=== PATIENT | female | born 1935 | race Caucasian/White ===

== ENCOUNTER 2017-10-12 16:51 | Inpatient (IN) | payer OTHER ==
[2017-10-12] MEDS: ONDANSETRON 4 MG INJ IV (18:29)
[2017-10-12] MEDS: morphine 4 MG/ML VIAL IV ×2 (18:29→22:12)
[2017-10-12] MEDS: SOD CHLORIDE 0.9% 1,000 ML IV ×3 (18:30→23:59)
[2017-10-12] MEDS: FAMOTIDINE 20 MG TAB PO (18:30)
[2017-10-12 18:44] LABS: ADD MAN DIFF? NO
[2017-10-12 18:47] LABS: WHITE BLOOD COUNT 22.1 10^3/ul (4.8-10.8)
[2017-10-12 18:47] LABS: BASOPHIL # 0.1 10^3/ul (0.0-0.1); BASOPHILS % 0.2 % (0.0-2.0); HEMATOCRIT 44.2 % (37.0-47.0); HEMOGLOBIN 15.5 g/dl (12.0-16.0); LYMPHOCYTES # 1.3 10^3/ul (0.8-2.9); MEAN CORPUSCULAR HEMOGLOBIN 30.8 pg (29.0-33.0); MEAN CORPUSCULAR HGB CONC 35.1 g/dl (32.0-37.0); MEAN CORPUSCULAR VOLUME 87.7 fl (82.0-101.0); MEAN PLATELET VOLUME 11.2 fl (7.4-10.4); MONOCYTE # 1.2 10^3/ul (0.3-0.9); MONOCYTES % 5.6 % (0.0-11.0); NEUTROPHIL # 19.4 10^3/ul (1.6-7.5); NEUTROPHILS % 87.7 % (39.0-77.0); PLATELET COUNT 202 10^3/UL (140-415); RED BLOOD COUNT 5.04 10^6/ul (4.20-5.40); RED CELL DISTRIBUTION WIDTH 12.8 % (11.5-14.5)
[2017-10-12] MEDS: FENTAnyl 50 MCG/ML VIAL IV (18:51)
[2017-10-12 19:05] LABS: ALANINE AMINOTRANSFERASE 385 IU/L (13-69); ALBUMIN 4.6 g/dl (3.3-4.9); ALBUMIN/GLOBULIN RATIO 1.12; ALKALINE PHOSPHATASE 358 IU/L (42-121); ANION GAP 20 (8-16); ASPARTATE AMINO TRANSFERASE 278 IU/L (15-46); BILIRUBIN,INDIRECT 1.3 mg/dl (0-1.1); BILIRUBIN,TOTAL 5.8 mg/dl (0.2-1.3); BLOOD UREA NITROGEN 13 mg/dl (7-20); CALCIUM 9.4 mg/dl (8.4-10.2); CARBON DIOXIDE 30 mmol/L (21-31); CHLORIDE 94 mmol/L (97-110); CREATININE 0.72 mg/dl (0.44-1.00); GLUCOSE 184 mg/dl (70-220); LIPASE 666 U/L (23-300); SODIUM 141 mmol/L (135-144); TOTAL PROTEIN 8.7 g/dl (6.1-8.1)
[2017-10-12 19:11] LABS: LACTIC ACID 2.6 mmol/L (0.5-2.0)
[2017-10-12 19:11] LABS: POTASSIUM 2.8 mmol/L (3.5-5.1)
[2017-10-12 19:16] LABS: TROPONIN-I < 0.012 ng/ml (0.00-0.12)
[2017-10-12] MEDS: LABETALOL HCL 20MG INJ IV (20:24)
[2017-10-12] MEDS ORDERED: HYDROCODONE/APAP (5/325) TAB PO (22:00)
[2017-10-12] MEDS: hydrALAzine 20 MG INJ IV ×2 (22:00→22:10)
[2017-10-12] MEDS ORDERED: ZOLPIDEM 5 MG TAB PO (22:00)
[2017-10-12] MEDS ORDERED: ACETAMINOPHEN 325 MG TAB PO (22:00)
[2017-10-12] MEDS ORDERED: MAGNESIUM HYDROXIDE 30ML CUP PO (22:00)
[2017-10-12] MEDS ORDERED: DOCUSATE SODIUM 100 MG CAP PO (22:00)
[2017-10-12] MEDS: CEFTRIAXONE 1 GM/50 ML (PMX) 50 ML IVPB (22:12)
[2017-10-12] MEDS ORDERED: METOCLOPRAMIDE 10 MG INJ IV (22:30)
[2017-10-12] MEDS ORDERED: LORAZEPAM 2 MG INJ IV (22:30)
[2017-10-12 22:43] LABS: MAGNESIUM 1.9 mg/dl (1.7-2.5)
[2017-10-12 23:35] LABS: LACTIC ACID 1.6 mmol/L (0.5-2.0)
[2017-10-12] MEDS: HYDROmorphONE 0.5 MG/0.5 ML SYG IV (23:53)
[2017-10-12] MEDS: metroNIDAZOLE 500 MG/NS (PMX) 100 ML IVPB (23:59)
[2017-10-13] MEDS: CLONIDINE 0.3 MG/24 HR PATCH TRANSDERM (01:15)
[2017-10-13] MEDS: hydrALAzine 20 MG INJ IV ×4 (01:31→14:00)
[2017-10-13] MEDS: POTASSIUM CHLORIDE 50 ML IVPB (03:43)
[2017-10-13] MEDS: HYDROmorphONE 0.5 MG/0.5 ML SYG IV (03:43)
[2017-10-13] MEDS: POTASSIUM CHLORIDE 30 MEQ in SOD CHLORIDE 0.9% 250 ML IV (03:46)
[2017-10-13] MEDS: PANTOPRAZOLE 40 MG INJ IV (07:02)
[2017-10-13] MEDS: SOD CHLORIDE 0.9% 1,000 ML IV ×2 (07:53→22:00)
[2017-10-13 08:03] LABS: ADD MAN DIFF? NO
[2017-10-13 08:08] LABS: ABNORMAL IP MESSAGE 1; BASOPHILS % 0.2 % (0.0-2.0); HEMATOCRIT 39.8 % (37.0-47.0); HEMOGLOBIN 13.6 g/dl (12.0-16.0); LYMPHOCYTES # 1.7 10^3/ul (0.8-2.9); LYMPHOCYTES % 6.7 % (15.0-51.0); MEAN CORPUSCULAR HEMOGLOBIN 30.4 pg (29.0-33.0); MEAN CORPUSCULAR HGB CONC 34.2 g/dl (32.0-37.0); MEAN CORPUSCULAR VOLUME 88.8 fl (82.0-101.0); MONOCYTE # 1.2 10^3/ul (0.3-0.9); NEUTROPHIL # 21.7 10^3/ul (1.6-7.5); NEUTROPHILS % 87.2 % (39.0-77.0); PLATELET COUNT 214 10^3/UL (140-415); RED BLOOD COUNT 4.48 10^6/ul (4.20-5.40); RED CELL DISTRIBUTION WIDTH 12.9 % (11.5-14.5)
[2017-10-13 08:08] LABS: WHITE BLOOD COUNT 24.9 10^3/ul (4.8-10.8)
[2017-10-13 08:14] LABS: LACTIC ACID 1.6 mmol/L (0.5-2.0)
[2017-10-13 08:16] LABS: POSITIVE DIFF @See below
[2017-10-13 08:24] LABS: CHOL/HDL RATIO 2.8 RATIO; HDL CHOLESTEROL 48 mg/dl (33-92); LDL CHOLESTEROL,CALCULATED 79 mg/dl; TRIGLYCERIDES 62 mg/dl (0-149)
[2017-10-13 08:24] LABS: CHOLESTEROL 139 mg/dl (100-200)
[2017-10-13 08:35] LABS: ALANINE AMINOTRANSFERASE 288 IU/L (13-69); ALBUMIN 3.9 g/dl (3.3-4.9); ALBUMIN/GLOBULIN RATIO 1.39; ALKALINE PHOSPHATASE 265 IU/L (42-121); ANION GAP 20 (8-16); ASPARTATE AMINO TRANSFERASE 144 IU/L (15-46); BILIRUBIN,TOTAL 6.4 mg/dl (0.2-1.3); BLOOD UREA NITROGEN 17 mg/dl (7-20); CALCIUM 8.4 mg/dl (8.4-10.2); CARBON DIOXIDE 27 mmol/L (21-31); CHLORIDE 99 mmol/L (97-110); CREATININE 1.23 mg/dl (0.44-1.00); GLUCOSE 117 mg/dl (70-220); MAGNESIUM 1.9 mg/dl (1.7-2.5); POTASSIUM 3.2 mmol/L (3.5-5.1); SODIUM 143 mmol/L (135-144); TOTAL PROTEIN 6.7 g/dl (6.1-8.1)
[2017-10-13 08:43] LABS: FREE THYROXINE INDEX (Calc) 3.69 ug/ml (0.65-3.89); T3 UPTAKE 40.5 % (23.5-40.5); T4 (THYROXINE) 9.1 ug/dl (5.5-11.0)
[2017-10-13 08:45] LABS: INR 1.05; PROTIME 13.8 Sec (11.9-14.9); PT RATIO 1.1
[2017-10-13 08:46] LABS: PARTIAL THROMBOPLASTIN TIME 31.7 Sec (25.0-35.0)
[2017-10-13] MEDS: ISOSORBIDE MONONITRATE(SR)60 MG TAB PO (09:00)
[2017-10-13] MEDS: LOSARTAN 50 MG TAB PO (09:17)
[2017-10-13] MEDS: PIPER-TAZO 3.375 GM IV (PMX) 100 ML IVPB ×3 (09:18→21:58)
[2017-10-13 09:24] LABS: HEMOGLOBIN A1C 5.3 % (0-5.9)
[2017-10-13] MEDS: ONDANSETRON 4 MG INJ IV (10:05)
[2017-10-13] MEDS ORDERED: POTASSIUM CHLORIDE 50 ML IVPB (11:00)
[2017-10-13] MEDS ORDERED: VITAMIN A & D 5 GM OINT PACKET TOP (13:27)
[2017-10-13 14:20] LABS: LACTIC ACID 2.3 mmol/L (0.5-2.0)
[2017-10-13] MEDS: KCL 30 MEQ in NS 250 ML IVPB X1 IVPB (14:24)
[2017-10-13] MEDS: SOD CHLORIDE 0.9% 500 ML IV (14:39)
[2017-10-13] MEDS ORDERED: ROCURONIUM 50 MG INJ ×2 (18:22→19:23)
[2017-10-13] MEDS ORDERED: LIDOCAINE 2% (SDV) 5 ML INJ (18:22)
[2017-10-13] MEDS ORDERED: SUCCINYLCHOLINE CHLORIDE 100 MG/5 ML SYG IV (18:22)
[2017-10-13] MEDS ORDERED: PROPOFOL 20 ML (18:22)
[2017-10-13] MEDS ORDERED: NEOSTIGMINE 3 MG/3 ML SYRINGE ×3 (18:22→19:40)
[2017-10-13] MEDS ORDERED: GLYCOPYRROLATE 0.4 MG INJ ×3 (18:22→19:40)
[2017-10-13] MEDS ORDERED: IOHEXOL 300MG/ML 30 ML BTL (18:27)
[2017-10-13] MEDS ORDERED: METOCLOPRAMIDE 10 MG INJ IV (18:30)
[2017-10-13] MEDS ORDERED: DIPHENHYDRAMINE 50 MG INJ IV (18:30)
[2017-10-13] MEDS ORDERED: MIDAZOLAM 1 MG/ML 2 ML INJ IV (18:30)
[2017-10-13] MEDS ORDERED: FENTAnyl 50 MCG/ML VIAL IV ×2 (18:30)
[2017-10-13] MEDS ORDERED: hydrALAzine 20 MG INJ IV (18:30)
[2017-10-13] MEDS ORDERED: LABETALOL HCL 20MG INJ IV (18:30)
[2017-10-13] MEDS ORDERED: OXYCODONE/ACETAMINOPHEN (5/325) TAB PO ×2 (18:30)
[2017-10-13] MEDS ORDERED: ONDANSETRON 4 MG INJ IV (18:30)
[2017-10-13] MEDS: INDOMETHACIN 50 MG SUPP PR (18:30)
[2017-10-13] MEDS ORDERED: EPHEDrine SULFATE 50 MG/5 ML SYG IV (18:30)
[2017-10-13] MEDS ORDERED: MEPERIDINE 25 MG INJ IV (18:30)
[2017-10-13] MEDS ORDERED: ONDANSETRON 4 MG INJ (19:10)
[2017-10-13] MEDS ORDERED: METOCLOPRAMIDE 10 MG INJ (19:10)
[2017-10-13] MEDS: FENTAnyl 50 MCG/ML VIAL IV (20:18)
[2017-10-13 21:49] LABS: LACTIC ACID 1.6 mmol/L (0.5-2.0)
[2017-10-13] MEDS: LACTATED RINGER'S 1,000 ML IV (21:57)
[2017-10-14] MEDS: LACTATED RINGER'S 1,000 ML IV ×2 (04:00→09:56)
[2017-10-14] MEDS: SOD CHLORIDE 0.9% 1,000 ML IV ×3 (04:09→23:53)
[2017-10-14] MEDS: PANTOPRAZOLE 40 MG INJ IV (05:30)
[2017-10-14] MEDS: PIPER-TAZO 3.375 GM IV (PMX) 100 ML IVPB ×3 (05:31→21:21)
[2017-10-14 07:21] LABS: ADD MAN DIFF? NO
[2017-10-14 07:23] LABS: WHITE BLOOD COUNT 13.8 10^3/ul (4.8-10.8)
[2017-10-14 07:23] LABS: BASOPHILS % 0.1 % (0.0-2.0); EOSINOPHILS % 0.1 % (0.0-7.0); HEMOGLOBIN 11.4 g/dl (12.0-16.0); LYMPHOCYTES # 1.5 10^3/ul (0.8-2.9); LYMPHOCYTES % 10.9 % (15.0-51.0); MEAN CORPUSCULAR HEMOGLOBIN 30.7 pg (29.0-33.0); MEAN CORPUSCULAR HGB CONC 34.5 g/dl (32.0-37.0); MEAN CORPUSCULAR VOLUME 88.9 fl (82.0-101.0); MEAN PLATELET VOLUME 12.2 fl (7.4-10.4); MONOCYTE # 0.4 10^3/ul (0.3-0.9); MONOCYTES % 3.1 % (0.0-11.0); NEUTROPHIL # 11.8 10^3/ul (1.6-7.5); NEUTROPHILS % 85.3 % (39.0-77.0); PLATELET COUNT 143 10^3/UL (140-415); RED BLOOD COUNT 3.71 10^6/ul (4.20-5.40); RED CELL DISTRIBUTION WIDTH 13.6 % (11.5-14.5)
[2017-10-14 07:50] LABS: ALANINE AMINOTRANSFERASE 155 IU/L (13-69); ALBUMIN 2.8 g/dl (3.3-4.9); ALBUMIN/GLOBULIN RATIO 0.93; ALKALINE PHOSPHATASE 196 IU/L (42-121); ASPARTATE AMINO TRANSFERASE 63 IU/L (15-46); BILIRUBIN,INDIRECT 0.9 mg/dl (0-1.1); BILIRUBIN,TOTAL 4.2 mg/dl (0.2-1.3); BLOOD UREA NITROGEN 29 mg/dl (7-20); CALCIUM 7.7 mg/dl (8.4-10.2); CARBON DIOXIDE 26 mmol/L (21-31); CHLORIDE 108 mmol/L (97-110); CREATININE 1.25 mg/dl (0.44-1.00); GLUCOSE 73 mg/dl (70-220); SODIUM 145 mmol/L (135-144); TOTAL PROTEIN 5.8 g/dl (6.1-8.1)
[2017-10-14 07:59] LABS: ANION GAP 14 (8-16)
[2017-10-14 08:02] LABS: POTASSIUM 2.6 mmol/L (3.5-5.1)
[2017-10-14] MEDS: POTASSIUM CHLORIDE (SR) 20 MEQ TAB PO ×3 (08:30→13:06)
[2017-10-14] MEDS: LOSARTAN 50 MG TAB PO (13:07)
[2017-10-14 17:11] LABS: POTASSIUM 3.7 mmol/L (3.5-5.1)
[2017-10-15] MEDS: PANTOPRAZOLE 40 MG INJ IV (06:05)
[2017-10-15] MEDS: PIPER-TAZO 3.375 GM IV (PMX) 100 ML IVPB ×3 (06:05→21:29)
[2017-10-15] MEDS: SOD CHLORIDE 0.9% 1,000 ML IV ×2 (06:08→21:28)
[2017-10-15 08:25] LABS: ADD MAN DIFF? NO
[2017-10-15 08:27] LABS: WHITE BLOOD COUNT 10.1 10^3/ul (4.8-10.8)
[2017-10-15 08:27] LABS: BASOPHILS % 0.3 % (0.0-2.0); EOSINOPHILS % 0.3 % (0.0-7.0); HEMOGLOBIN 11.4 g/dl (12.0-16.0); LYMPHOCYTES # 1.8 10^3/ul (0.8-2.9); LYMPHOCYTES % 17.5 % (15.0-51.0); MEAN CORPUSCULAR HEMOGLOBIN 30.2 pg (29.0-33.0); MEAN CORPUSCULAR HGB CONC 33.5 g/dl (32.0-37.0); MEAN CORPUSCULAR VOLUME 89.9 fl (82.0-101.0); MEAN PLATELET VOLUME 11.6 fl (7.4-10.4); MONOCYTE # 0.5 10^3/ul (0.3-0.9); MONOCYTES % 4.5 % (0.0-11.0); NEUTROPHIL # 7.7 10^3/ul (1.6-7.5); NEUTROPHILS % 76.6 % (39.0-77.0); PLATELET COUNT 161 10^3/UL (140-415); RED BLOOD COUNT 3.78 10^6/ul (4.20-5.40); RED CELL DISTRIBUTION WIDTH 13.8 % (11.5-14.5)
[2017-10-15] MEDS: AMLODIPINE 5 MG TAB PO (08:27)
[2017-10-15] MEDS: LOSARTAN 50 MG TAB PO (08:27)
[2017-10-15 09:02] LABS: ALANINE AMINOTRANSFERASE 121 IU/L (13-69); ALBUMIN 2.9 g/dl (3.3-4.9); ALBUMIN/GLOBULIN RATIO 1.11; ALKALINE PHOSPHATASE 223 IU/L (42-121); ANION GAP 13 (8-16); ASPARTATE AMINO TRANSFERASE 50 IU/L (15-46); BILIRUBIN,TOTAL 3.6 mg/dl (0.2-1.3); BLOOD UREA NITROGEN 17 mg/dl (7-20); CARBON DIOXIDE 25 mmol/L (21-31); CHLORIDE 110 mmol/L (97-110); CREATININE 0.71 mg/dl (0.44-1.00); GLUCOSE 77 mg/dl (70-220); POTASSIUM 3.4 mmol/L (3.5-5.1); SODIUM 145 mmol/L (135-144); TOTAL PROTEIN 5.5 g/dl (6.1-8.1)
[2017-10-15] MEDS: POTASSIUM CHLORIDE (SR) 20 MEQ TAB PO (10:54)
[2017-10-15] MEDS: HYDROmorphONE 0.5 MG/0.5 ML SYG IV (10:58)
[2017-10-15] MEDS: hydrALAzine 20 MG INJ IV (21:28)
[2017-10-16] MEDS: SOD CHLORIDE 0.9% 1,000 ML IV ×2 (05:53→15:30)
[2017-10-16] MEDS: PANTOPRAZOLE 40 MG INJ IV (06:00)
[2017-10-16] MEDS: PIPER-TAZO 3.375 GM IV (PMX) 100 ML IVPB ×2 (06:00→13:28)
[2017-10-16] MEDS: ALENDRONATE 70 MG TAB PO (07:09)
[2017-10-16] MEDS: hydrALAzine 20 MG INJ IV ×2 (07:45→15:42)
[2017-10-16] MEDS: AMLODIPINE 5 MG TAB PO (08:20)
[2017-10-16] MEDS: LOSARTAN 50 MG TAB PO ×2 (08:20→21:10)
[2017-10-16 12:26] LABS: ADD MAN DIFF? NO
[2017-10-16 12:37] LABS: WHITE BLOOD COUNT 9.6 10^3/ul (4.8-10.8)
[2017-10-16 12:37] LABS: BASOPHIL # 0.1 10^3/ul (0.0-0.1); BASOPHILS % 0.5 % (0.0-2.0); EOSINOPHILS % 0.4 % (0.0-7.0); HEMATOCRIT 37.8 % (37.0-47.0); LYMPHOCYTES # 2.7 10^3/ul (0.8-2.9); LYMPHOCYTES % 27.8 % (15.0-51.0); MEAN CORPUSCULAR HEMOGLOBIN 30.4 pg (29.0-33.0); MEAN CORPUSCULAR HGB CONC 34.4 g/dl (32.0-37.0); MEAN CORPUSCULAR VOLUME 88.3 fl (82.0-101.0); MEAN PLATELET VOLUME 11.3 fl (7.4-10.4); MONOCYTE # 0.5 10^3/ul (0.3-0.9); MONOCYTES % 5.5 % (0.0-11.0); NEUTROPHIL # 6.2 10^3/ul (1.6-7.5); NEUTROPHILS % 64.5 % (39.0-77.0); PLATELET COUNT 196 10^3/UL (140-415); RED BLOOD COUNT 4.28 10^6/ul (4.20-5.40); RED CELL DISTRIBUTION WIDTH 13.5 % (11.5-14.5)
[2017-10-16 12:54] LABS: ALANINE AMINOTRANSFERASE 106 IU/L (13-69); ALKALINE PHOSPHATASE 270 IU/L (42-121); ASPARTATE AMINO TRANSFERASE 55 IU/L (15-46); BILIRUBIN,INDIRECT 1.1 mg/dl (0-1.1); BILIRUBIN,TOTAL 1.7 mg/dl (0.2-1.3); CREATINE KINASE 52 IU/L (23-200)
[2017-10-16 12:56] LABS: MAGNESIUM 1.5 mg/dl (1.7-2.5)
[2017-10-16 12:58] LABS: ANION GAP 13 (8-16); BLOOD UREA NITROGEN 8 mg/dl (7-20); CALCIUM 8.6 mg/dl (8.4-10.2); CARBON DIOXIDE 27 mmol/L (21-31); CHLORIDE 108 mmol/L (97-110); CREATININE 0.55 mg/dl (0.44-1.00); GLUCOSE 116 mg/dl (70-220); SODIUM 145 mmol/L (135-144)
[2017-10-16 13:06] LABS: CK INDEX 1.9; CK-MB 0.97 ng/ml (0.0-2.4)
[2017-10-16 13:19] LABS: FREE T4 (FREE THYROXINE) 1.82 ng/dl (0.85-1.93)
[2017-10-16] MEDS: POTASSIUM CHLORIDE (SR) 20 MEQ TAB PO (13:28)
[2017-10-16] MEDS ORDERED: POTASSIUM CHLORIDE (SR) 20 MEQ TAB PO (13:55)
[2017-10-16 14:35] LABS: THYROID STIMULATING HORMONE 0.272 MIU/L (0.465-4.680)
[2017-10-16] MEDS: MAGNESIUM SULFATE 4 GM/100 ML 100 ML IVPB (15:30)
[2017-10-16] MEDS: AMOXICILLIN/CLAV 875 MG TAB PO ×2 (15:30→21:10)
[2017-10-16 18:50] LABS: CREATINE KINASE 55 IU/L (23-200)
[2017-10-16 19:04] LABS: CK INDEX 1.8; CK-MB 1.01 ng/ml (0.0-2.4); TROPONIN-I 0.078 ng/ml (0.00-0.12)
[2017-10-17 01:04] LABS: CREATINE KINASE 44 IU/L (23-200)
[2017-10-17 01:16] LABS: CK INDEX 1.6; CK-MB 0.72 ng/ml (0.0-2.4); TROPONIN-I 0.075 ng/ml (0.00-0.12)
[2017-10-17] MEDS: SOD CHLORIDE 0.9% 1,000 ML IV ×2 (02:52→11:53)
[2017-10-17] MEDS: PANTOPRAZOLE (EC) 40 MG TAB PO (05:42)
[2017-10-17] MEDS: hydrALAzine 20 MG INJ IV ×2 (05:42→11:22)
[2017-10-17 07:07] LABS: MAGNESIUM 1.9 mg/dl (1.7-2.5)
[2017-10-17 07:24] LABS: ALANINE AMINOTRANSFERASE 105 IU/L (13-69); ALBUMIN 3.3 g/dl (3.3-4.9); ALBUMIN/GLOBULIN RATIO 1.06; ALKALINE PHOSPHATASE 248 IU/L (42-121); ANION GAP 14 (8-16); ASPARTATE AMINO TRANSFERASE 58 IU/L (15-46); BILIRUBIN,TOTAL 1.1 mg/dl (0.2-1.3); BLOOD UREA NITROGEN 7 mg/dl (7-20); CALCIUM 8.2 mg/dl (8.4-10.2); CARBON DIOXIDE 26 mmol/L (21-31); CHLORIDE 107 mmol/L (97-110); GLUCOSE 110 mg/dl (70-220); SODIUM 144 mmol/L (135-144); TOTAL PROTEIN 6.4 g/dl (6.1-8.1)
[2017-10-17 07:31] LABS: POTASSIUM 2.9 mmol/L (3.5-5.1)
[2017-10-17] MEDS: AMOXICILLIN/CLAV 875 MG TAB PO (08:53)
[2017-10-17] MEDS: AMLODIPINE 5 MG TAB PO ×2 (08:54→12:31)
[2017-10-17] MEDS: POTASSIUM CHLORIDE (SR) 20 MEQ TAB PO ×2 (08:54→17:32)
[2017-10-17] MEDS: LOSARTAN 50 MG TAB PO (08:55)
[2017-10-17 12:13] LABS: LIPASE 826 U/L (23-300)
[2017-10-17 12:13] LABS: AMYLASE 113 U/L (11-123)
[2017-10-18] MEDS ORDERED: AMLODIPINE 5 MG TAB PO (09:00)
[2017-10-18] MEDS ORDERED: AMLODIPINE 10 MG TAB PO (09:00)
== END 2017-10-17 19:45 | disposition home or self-care (01) | DRG 871 ==
LOC: TEL 21:58 → E/R 16:51
PROC: 0FC98ZZ Extirpation of Matter from Common Bile Duct, Via Natural or Artificial Opening Endoscopic (ICD-10-PCS; principal; 2017-10-13 15:30)
PROC: 0F798DZ Dilation of Common Bile Duct with Intraluminal Device, Via Natural or Artificial Opening Endoscopic (ICD-10-PCS; 2017-10-13 15:30)
PROC: 0F998ZZ Drainage of Common Bile Duct, Via Natural or Artificial Opening Endoscopic (ICD-10-PCS; 2017-10-13 15:30)
DX: A41.51 Sepsis due to Escherichia coli [E. coli] (principal); K85.10 Biliary acute pancreatitis without necrosis or infection; K80.43 Calculus of bile duct with acute cholecystitis with obstruction; E87.2 Acidosis; I16.0 Hypertensive urgency; I10 Essential (primary) hypertension; E87.6 Hypokalemia; E78.00 Pure hypercholesterolemia, unspecified; E66.3 Overweight; M81.0 Age-related osteoporosis without current pathological fracture; E83.42 Hypomagnesemia; K21.9 Gastro-esophageal reflux disease without esophagitis; E86.0 Dehydration; Z90.710 Acquired absence of both cervix and uterus
CPT/HCPCS: 74176; 74181; 74330; 76705; 80048; 80053; 80061; 80076; 82150; 82550; 82553; 83036; 83605; 83690; 83735; 84132; 84436; 84439; 84443; 84479; 84484; 85025; 85610; 85730; 93005; 93306; 96374; 96375; 96376; 97116; 97162; 97530; 99291-25

== ENCOUNTER 2018-01-04 13:11 | Day surgery (SDC) | payer OTHER ==
[2018-01-04] MEDS ORDERED: IOHEXOL 300MG/ML 30 ML BTL (16:03)
[2018-01-04] MEDS ORDERED: DIPHENHYDRAMINE 50 MG INJ IV (17:30)
[2018-01-04] MEDS ORDERED: METOCLOPRAMIDE 10 MG INJ IV (17:30)
[2018-01-04] MEDS ORDERED: LABETALOL HCL 20MG INJ IV (17:30)
[2018-01-04] MEDS ORDERED: hydrALAzine 20 MG INJ IV (17:30)
[2018-01-04] MEDS ORDERED: OXYCODONE/ACETAMINOPHEN (5/325) TAB PO ×2 (17:30)
[2018-01-04] MEDS ORDERED: FENTAnyl 50 MCG/ML VIAL IV ×2 (17:30)
[2018-01-04] MEDS ORDERED: EPHEDrine SULFATE 50 MG/5 ML SYG IV (17:30)
[2018-01-04] MEDS ORDERED: MIDAZOLAM 1 MG/ML 2 ML INJ IV (17:30)
[2018-01-04] MEDS ORDERED: NEOSTIGMINE 3 MG/3 ML SYRINGE (17:32)
[2018-01-04] MEDS ORDERED: PROPOFOL 20 ML (17:32)
[2018-01-04] MEDS ORDERED: SUCCINYLCHOLINE CHLORIDE 100 MG/5 ML SYG IV (17:32)
[2018-01-04] MEDS ORDERED: LIDOCAINE 2% (SDV) 5 ML INJ (17:32)
[2018-01-04] MEDS ORDERED: GLYCOPYRROLATE 0.4 MG INJ (17:32)
[2018-01-04] MEDS ORDERED: ROCURONIUM 50 MG INJ (17:32)
[2018-01-04] MEDS ORDERED: METOCLOPRAMIDE 10 MG INJ (18:32)
[2018-01-04] MEDS ORDERED: ONDANSETRON 4 MG INJ (18:32)
[2018-01-04] MEDS: ONDANSETRON 4 MG INJ IV (19:09)
[2018-01-04] MEDS: MEPERIDINE 25 MG INJ IV (19:10)
[2018-01-04] MEDS: FENTAnyl 50 MCG/ML VIAL IV (19:18)
== END 2018-01-04 20:00 | disposition home or self-care (01) ==
LOC: GIL 13:11 → SDS 13:11 → GIL 20:00
DX: K80.50 Calculus of bile duct without cholangitis or cholecystitis without obstruction (principal); I10 Essential (primary) hypertension
CPT/HCPCS: 43264; 71045; 74330; 93005